=== PATIENT | female | born 1960 | race Two or more races ===

== ENCOUNTER 2016-09-28 20:18 | Inpatient (IN) ==
[2016-09-28] MEDS ORDERED: ONDANSETRON 4 MG/2 ML VIAL IV STA (20:45)
[2016-09-28] MEDS ORDERED: SODIUM CHLORIDE 0.9% 1,000 ML IV STA (20:45)
--- NOTE | 2016-09-28 20:50 | Emergency Department Note ---
Sidra Petit Emily, am scribing for, and in the presence of, Jerel Rosenbaum MD 20: 46. Robi Petit Charles R, MD, personally performed the services described in this documentation, ascribed by Juana Valente in my presence, and it is both accurate and complete 049 . Arrival - Arrival Chief Complaint: Overdose Stated Complaint: overdose ED Nursing Triage Note: Patient to room via ems. Patient took a handful of advil and drank some wine trying to hurt herself. Patient has attempted to hurt herself in the pass. Patient does have a history of depression. Mode of Arrival: Stretcher Limitations: No Limitations Source: Patient, Significant other Time Seen by Provider: 09/28/16 20:26 - History of Present Illness HPI Narrative: Pt is a 56 y/o female who was brought to ED by EMS for further evaluation of OD with 30 5mg of Valium and Advil (liquid gels) earlier tonight. Pt reports drinking 6 oz of wine. She has slow motions and reactions but alert. Spouse notes pt suffers from depression. Pt states "I am very sad." Onset (ago): hour(s) Consistency: constant Severity: moderate Severity scale (1-10): 5 Quality: other (OD) Date of Last Menstrual Period: hyst Allergies/Adverse Reactions: Allergies Allergy/AdvReac Type Severity Reaction Status Date / Time No Known Allergies Allergy Unverified 09/28/16 20:22 Review of System - Review of System 12 point system: reviewed and no additional remarkable complaints except as stated - Review of System Constitutional: Absent: fever Respiratory: Absent: respiratory distress Cardiovascular: Absent: chest pain Gastrointestinal: Absent: abdominal pain Musculoskeletal: Absent: arm pain, back pain, leg pain, neck pain Skin: Absent: rash Neurological: Absent: headache Psychiatric: Present: depression, suicidal thoughts. Absent: anxiety, homicidal thoughts Medical,Surgical,& Family Hx - Medical History Psychological: History of: Depression - Surgical History Surgical History: noncontributory - Family History Family History: noncontributory - Social History Smoking Status: Never smoker Frequency of Alcohol Use: Occasionally Type of Drug Use: None Marital Status: Lives With:: Spouse Functional capacity: independent ambulation Exam Vital Signs: Vital Signs Temperature 97.6 F 09/28/16 20:18 Pulse Rate 77 09/28/16 20:18 Respiratory Rate 16 09/28/16 21:48 Blood Pressure 98/70 09/28/16 20:18 O2 Sat by Pulse Oximetry 95 09/28/16 20:18 - General General appearance: alert, in no apparent distress, appears intoxicated - Head Head exam: Present: atraumatic, normocephalic - Eye Eye exam: Present: PERRL, EOMI, nystagmus (vertical and horizontal) - ENT ENT exam: Present: mucous membranes moist. Absent: mucous membranes dry - Neck Neck exam: Present: full ROM. Absent: tenderness - Chest Chest inspection: Present: symmetric chest wall rise. Absent: tenderness - Respiratory Respiratory exam: Present: normal lung sounds bilaterally, other (patent airway) . Absent: accessory muscle use, respiratory distress, wheezes - Cardiovascular Cardiovascular exam: Present: regular rate, normal rhythm, normal heart sounds - Abdominal Exam Abdominal exam: Present: soft. Absent: distention, tenderness - Neurological Exam Neurological exam: Present: alert, oriented X3, CN II-XII intact, other (heavy movements in arms with slow, laxity motions). Absent: motor sensory deficit - Skin Skin exam: Present: warm, dry, intact, normal color Course - Reevaluation(s) Reevaluation #1: Patient reevaluated she is still intoxicated on what appears to be a benzodiazepine overdose. Patient is arousable alert slurred speech patent airway oxygen saturation 100% room air she is arousable with deep sternal rub and will converse and answer appropriate questions Time: 21:59 - Consultations Consultation #1: Hospitalist will admit patient Time: 21:59 Results - Labs CBC & BMP: 09/28/16 21:00 Lab Results: I have reviewed the patients labs Labs: Laboratory Tests 09/28/16 21:00 MCV 84.5 L Baso % (Auto) 0.9 H Critical Care Time Critical Care Time: Yes Total Critical Care Time: 75 Disposition Clinical Impression: Drug overdose, Suicide attempt by multiple drug overdose, Major depression Case discussed with: patient, patient's family Disposition: Still a Patient Condition: Critical Time of Disposition: 21:59
[2016-09-28] MEDS ORDERED: ONDANSETRON 4 MG/2 ML VIAL ONE (20:58)
[2016-09-28 21:13] LABS: Basophils # 0.1 10*3/uL (0.0-0.2); Basophils % 0.9 % (0.0-0.8); Eosinophils # 0.1 10*3/uL (0.0-0.87); Eosinophils % 2.4 % (0.00-10.9); Hematocrit 38.3 VOL% (35.7-47.0); Hemoglobin 13.1 GM/DL (12.0-16.0); Immature Granulocytes % 0.2 %; Immature Granulocytes Absolute 0.01 #; Lymphocytes % 35.9 % (21.3-54.2); Mean Corpuscular HGB Conc 34.2 GM/DL (32-36); Mean Corpuscular Hemoglobin 29 PG (27-34); Mean Corpuscular Volume 84.5 FL (87-102); Mean Platelet Volume 10.3 FL (9.6-12.0); Monocytes # 0.3 10*3/uL (0.11-0.8); Monocytes % 5.9 % (1.7-12.7); Neutrophils % 54.7 % (38.7-73.9); Platelet Count 305 T/CUMM (130-400); Red Blood Count 4.53 MC/CUMM (3.8-5.5); Red Cell Distribution Width 13.5 % (9.3-17.3); White Blood Count 5.4 T/CUMM (4-12)
[2016-09-28 21:24] LABS: INR 1.1; PT Patient Result 11.8 SECS
[2016-09-28 21:30] LABS: Magnesium 2.2 MG/DL (1.8-2.4)
--- NOTE | 2016-09-28 21:33 | EKG Report ---
Stationary ECG Study [facility] ER Test Date: 09/28/2016 9:32:59 PM Pat Name: DIMA JOHNSON Department: Room: 129 Gender: F Fork Operator: MEGAN : 1960 Requested by: Jerel Fuentes Order Number: [id number] Reading MD: SHARON GALLO Intervals [place] Rate: 65 P: 62 CT: 170 QRS: 21 QRSD: 75 T: 52 QT: 390 QTc: 402 Interpretive Statements SINUS RHYTHM At 65 bpm LOW QRS VOLTAGE IN PRECORDIAL LEADS Electronically Signed On 10-03-16 15:45:01 CDT by SHARON GALLO [email or web address]
--- NOTE | 2016-09-28 22:04 | XRay Report ---
Referring Physician: Jerel Rosenbaum Exam: XR chest 1V portable Date: September 28, 2016 at 9:00 PM Reason: Overdose Comparison: None Findings: The cardiac silhouette is mildly enlarged. The interstitial markings are slightly prominent bilaterally, suggesting minimal pulmonary edema. No pneumothorax or pleural effusion is identified. No acute osseous process is seen. Impression: 1. Cardiomegaly. 2. Probable minimal pulmonary edema. PROCEDURE INTERPRETED AT [facility] DEPARTMENT OF RADIOLOGY Final Report Signed by: Dr. Lamonte Lynch
[2016-09-28 22:08] LABS: ABG Base Excess 2.1 MMOL/L (-2.5-2.5); ABG HCO3 26.3 MMOL/L (20-26); ABG Oxygen Saturation 99.1 % (95-100); ABG PCO2 47.8 MM HG (35-48); ABG PH 7.375 (7.35-7.45); ABG TCO2 24.8 MMOL/L (23-27)
[2016-09-28 22:12] LABS: Acetaminophen < 2.0 UG/ML (10-30); Salicylate < 2.8 MG/DL (2.8-20)
[2016-09-28] MEDS ORDERED: ONDANSETRON 4 MG/2 ML VIAL IV PRN (22:18)
[2016-09-28] MEDS ORDERED: ALBUTEROL 2.5 MG/3 ML NEB RESP TX PRN (22:18)
--- NOTE | 2016-09-28 22:24 | Hospitalist History & Physical ---
Assessment and Plan (1) Drug overdose Status: Acute Current Visit: Yes (2) Suicide attempt by multiple drug overdose Status: Acute Current Visit: Yes (3) Major depression Status: Acute Assessment and plan: We will admit the patient to our service. She will will be observed in the ICU. She will be on suicide precautions. Get psychiatric social worker involved with her care tomorrow. Patient needs to see [facility]. Current Visit: Yes History of Present Illness Chief complaint: Overdose History of present illness: Ms. Luna is a 56 year old female with past medical history of depression presents to our hospital tonight after taking a handful of Advil Valium and alcohol. Apparently patient was trying to hurt herself. Patient is sedated from her overdose and her is not here to discuss her case. According to the ER she drank 6 ounces of wine. She will wake up upon voice but at this time is not able to answer questions. Her airway is intact and there is no signs that she is too sedated to maintain her airway I was consulted to admit her Allergies Allergy/AdvReac Type Severity Reaction Status Date / Time No Known Allergies Allergy Unverified 09/28/16 20:22 Medical,Surgical,& Family Hx - Medical History Psychological: History of: Depression - Surgical History Reproductive Surgeries: Surgical HX of;: Hysterectomy - Family History Family History: noncontributory (none) - Social History Smoking Status: Never smoker Frequency of Alcohol Use: Occasionally Type of Drug Use: None ROS unobtainable: due to delirium Exam - Constitutional General appearance: normal weight - Head Head exam: Present: normal inspection - Eye Pupils: Present: DRE (Sluggish) - ENT ENT exam: Present: normal exam - Neck Neck exam: Present: normal inspection - Respiratory Respiratory exam: Present: clear to auscultation bilaterally - Cardiovascular Cardiovascular exam: Present: regular rate and rhythm - GI/Abdominal GI/Abdominal exam: Present: normal bowel sounds - Extremities Exam Extremities exam: Present: normal inspection - Back Exam Back exam: Present: normal inspection - Neurological Exam Neurological exam: Present: altered - Psychiatric Psychiatric exam: Present: other (Unable to assess) - Skin Skin exam: Present: normal color Results - Labs CBC & BMP: 09/28/16 21:00
[2016-09-28 22:39] LABS: Bilirubin,Total 0.5 MG/DL (0.2-1.0); Calcium 8.9 MG/DL (8.5-10.1); Osmolality,Calculated 279.1 MOS/KG (273-304); Potassium 3.8 MMOL/L (3.5-5.1)
[2016-09-28 22:53] LABS: Apearance,Urine CLEAR (Clear); Bilirubin,Urine Negative (Negative); Blood, Urine Negative (Negative); Glucose,Urine (UA) Negative (Negative); Ketones,Urine Negative (Negative); Mucus,Urine Occasional /LPF (Occasional); Nitrite,Urine Negative (Negative); Protein,Urine Negative; RBC,Urine 1 /HPF (0-4); Renal Epithelial Cells,Urine Occasional /HPF (<1); Urine Color Yellow (Yellow); Urine Specific Gravity 1.006 (1.001-1.035); Urine Urobilinogen < 2.0 EU/DL (0.2-1.0); WBC,Urine 2 /HPF (0-6)
[2016-09-28] MEDS: SODIUM CHLORIDE 0.9% 1,000 ML IV SCH (23:14)
[2016-09-28] MEDS: PANTOPRAZOLE 40 MG VIAL IV SCH (23:42)
[2016-09-29] MEDS ORDERED: SODIUM CHLORIDE 0.9% 500 ML IV ONE (00:24)
[2016-09-29 05:30] LABS: Basophils # 0.1 10*3/uL (0.0-0.2); Basophils % 0.8 % (0.0-0.8); Eosinophils # 0.2 10*3/uL (0.0-0.87); Eosinophils % 2.5 % (0.00-10.9); Hematocrit 37.1 VOL% (35.7-47.0); Hemoglobin 12.1 GM/DL (12.0-16.0); Immature Granulocytes % 0.3 %; Immature Granulocytes Absolute 0.02 #; Lymphocytes # 2.1 10*3/uL (1.4-4.0); Lymphocytes % 27.1 % (21.3-54.2); Mean Corpuscular HGB Conc 32.6 GM/DL (32-36); Mean Corpuscular Hemoglobin 28 PG (27-34); Mean Corpuscular Volume 86.5 FL (87-102); Mean Platelet Volume 10.6 FL (9.6-12.0); Monocytes # 0.5 10*3/uL (0.11-0.8); Monocytes % 5.9 % (1.7-12.7); Neutrophils % 63.4 % (38.7-73.9); Platelet Count 276 T/CUMM (130-400); Red Blood Count 4.29 MC/CUMM (3.8-5.5); White Blood Count 7.9 T/CUMM (4-12)
[2016-09-29 06:11] LABS: Albumin 3.2 G/DL (3.4-5.0); Bilirubin,Total 0.7 MG/DL (0.2-1.0); Calcium 8.3 MG/DL (8.5-10.1); Osmolality,Calculated 284.7 MOS/KG (273-304); Potassium 4.2 MMOL/L (3.5-5.1); Total Protein 5.7 G/DL (6.4-8.3)
[2016-09-29] MEDS: SODIUM CHLORIDE 0.9% 1,000 ML IV SCH ×3 (08:35→17:50)
[2016-09-29] MEDS: ENOXAPARIN 40 MG/0.4 ML SYRINGE SUBCUT SCH (08:35)
--- NOTE | 2016-09-29 13:27 | Hospitalist Progress Note ---
Assessment and Plan (1) Suicide attempt by multiple drug overdose Status: Acute Assessment and plan: Dixie to evaluate when more alert and awake. With place her on a psychiatric hold for 72 hours if patient attempts to leave Current Visit: Yes (2) Major depression Status: Acute Assessment and plan: Hold off on starting any medications at this time. Current Visit: Yes Hospitalist: Subjective Interval history: Patient still very sleepy. She looks stable. Blood pressure is stable. We will move her up to the floor on a monitor. Exam - Constitutional Vitals: Period Temp Pulse Resp BP Sys/Hdz Pulse Ox Last 24 Hr 97.7 F-100.3 F 60-97 - 69-117/37-74 92-100 Exam: Heart Rate-[RRR] Lungs-[CTAB] GI-[+bs soft, NT] Ext-[no edema] Neuro more lethargic from drugs unable to cooperate with neuro exam psych [depressed mood and affect] General [no acute distress] Results - Labs CBC & BMP: 09/29/16 05:23 09/29/16 05:23 Lab Results: I have reviewed the past 24 hour labs
[2016-09-29] MEDS: PANTOPRAZOLE 40 MG VIAL IV SCH (20:41)
[2016-09-30] MEDS: SODIUM CHLORIDE 0.9% 1,000 ML IV SCH (04:58)
--- NOTE | 2016-09-30 09:11 | Hospitalist Progress Note ---
Hospitalist: Subjective Interval history: No new complaints. No significant overnight events. Exam - Constitutional Vitals: Period Temp Pulse Resp BP Sys/Hdz Pulse Ox Last 24 Hr 96 F-100.3 F 61-87 12-20 103-120/47-78 93-100 Exam: General exam: Patient is awake alert and oriented 4 lying in hospital bed comfortable in no acute distress HEENT exam reveals pupils are equal and reactive to light extraocular muscles are intact sclerae clear conjunctiva pink nares are patent no discharge or epistaxis noted oropharynx is clear no oral lesions or thrush. Neck is supple no lymphadenopathy or thyromegaly appreciated no JVD. Cardiovascular exam reveals regular rate and rhythm normal S1-S2 no obvious murmurs rubs or gallops Lungs are clear to auscultation bilaterally with good aeration nonlabored breathing noted Abdomen is soft nontender nondistended positive bowel sounds no organomegaly or mass appreciated Extremity exam she is warm and well-perfused no clubbing cyanosis or edema Neuro exam revealed cranial nerves II through XII are intact she had 5 out of 5 strength of the upper and lower extremities bilaterally sensory exam was grossly intact. Gait was not assessed. She had a normal finger nose exam. Babinski was absent. No clonus noted Results - Labs CBC & BMP: 09/29/16 05:23 09/29/16 05:23 - Impressions (1) Suicide attempt by multiple drug overdose Status: Acute Assessment and plan: Patient has declined Oste[facility] evaluation . We had a letter from her primary psychiatrist who reports he will assume responsibility for her and will follow up with her upon discharge. She currently denies any suicidal or homicidal ideation. is in agreement with this plan. Current Visit: Yes (2) Major depression Status: Acute Assessment and plan: Resume home medication. Current Visit: Yes Okay to DC home with her . Patient to sign suicidal contract. See orders
[2016-09-30] MEDS: ENOXAPARIN 40 MG/0.4 ML SYRINGE SUBCUT SCH (09:42)
[2016-09-30 10:39] LABS: Free T4 (Free Thyroxine) 0.96 NG/DL (0.76-1.46); Thyroid Stimulating Hormone 2.4 uIU/ml (0.358-3.74)
--- NOTE | 2016-09-30 11:04 | Discharge Summary ---
<Cooper Puente - Last Filed: 09/30/16 12:24> Hospital Course - Hospital Course Hospital Course: Ms. uLna is a 56 yr old female pt with a history of depression that presented to the ED after a suicide attempt. Pt. took 30 5mg of Valium and an undisclosed amount of Advil in addition to drinking 6 oz of wine. Pt. was sedated and admitted to the ICU for further evaluation and treatment. The patient was monitored closely and began to wake up. Pt.'s condition improved and she was transferred to the floor on 09/29. Pt.'s vital signs are stable and she will be discharged home today with a referral to follow up with psychiatry. Medications will be held at this time. MD to follow. Specialty Discharge - Follow Up or Referrals Follow up with: , PCP [Other] - [address] joel [Other] - 3 Days Discharge Plan - Discharge Data Disposition: Disch To Home/Self Care - Discharge Medications Continue Paroxetine HCl [Paxil] 20 mg PO DAILY Multivitamin [Multivitamins] 1 each PO DAILY Discontinued Diazepam Tab [Valium Tab] 5 mg PO Q6H PRN PRN Reason: Anxiety - Follow Up or Referral - Forms/Instructions Exam - Constitutional Vitals: Period Temp Pulse Resp BP Sys/Hdz Pulse Ox Last 24 Hr 97.3 F-98.3 F 61-87 16-20 103-130/47-78 93-98 Discharge Results Labs on day of discharge: Labs from last 24 hours 09/30/16 09/30/16 09/30/16 09:42 09:42 09:42 Vitamin B12 687 25-OH Vitamin D Total 27.2 Free T4 TSH 3rd Generation Treponema pallidum IgG Nonreactive 09/30/16 09:42 Vitamin B12 25-OH Vitamin D Total Free T4 0.96 TSH 3rd Generation 2.400 Treponema pallidum IgG DS: Provider Date of admission: 09/28/16 21:57 Primary care physician: . No PCP Attending physician on admission: Jay Rodriguez MD Consults: 09/28/16 22:20 Consult to Case Mgmt/Social Srvs [CONS] Routine Reason for Case Mgmt/Social Srvs: Psychiatric Management Discharging clinician: Cooper Puente NP <Zainab Bender - Last Filed: 09/30/16 15:57> Hospital Course - Hospital Course Hospital Course: Patient denies any headache, changes in her vision, epistaxis, difficulty swallowing, chest pain, shortness of breath, palpitations, lightheadedness or dizziness, nausea, vomiting, abdominal pain, melena, bright red blood per rectum , hematuria, changes in her urine output, dysuria, or any focal neurological changes. No seizure activity reported. She is tolerating oral intake well. Patient admits to feeling guilty about taking the Valium as and when asked what she asked why she reports "I do not know". She admits to mild difficulty in concentrating and focusing on tasks. She denies any changes or trouble with sleeping, eating and denies any changes with her weight. She reports her energy level is "okay". She denies feeling that her mood is sad or that she feels as if she would hurt herself or anyone else. Patient has declined to speak with the psychiatry team at [facility]. We have received a letter from her psychiatrist, Dr. Sellers who reports that he will assume care for her and feels she does not require inpatient psychiatric treatment at this time. When she was medically stable she was discharged home for ongoing care. - Time spent with patient Time with patient DS: Greater than 30 minutes (33 minutes arranging this discharge) Discharge Plan - Discharge Data Condition at Discharge: Stable Discharge Diet: advance to your usual diet Activity: resume usual activities as tolerated Contact your physician if you experience:: fever over 101, Difficulty voiding, Redness or swelling, Nausea/Vomiting, Shortness of breath, Bleeding, pain uncontrolled by pain medications - Forms/Instructions Additional Discharge Instructions: Patient needs to sign a suicidal contract prior to discharge agreeing that if she feels suicidal that she will contact her MD prior to taking action. Exam - Constitutional Exam: See progress note from today's exam is unchanged
[2016-09-30 15:44] VITALS: BP 112/71
== END 2016-09-30 16:30 | disposition home or self-care (01) | DRG 918 ==
LOC: EDBD → EDUNIT# → N.ED 20:18 → SUATTDRO 21:57 → N.EDINP 21:57 → N.CC 22:23 → N.4E 09-29 13:08
PROVIDERS: ADMIT Internal Medicine; ATTEND Pediatrics

== ENCOUNTER 2016-10-19 12:24 | Inpatient (IN) ==
--- NOTE | 2016-10-19 13:00 | XRay Report ---
XR chest 1V portable Indication: Overdose Comparison: Chest x-ray 09/28/2016 Technique: Portable AP chest was performed. Findings: The heart size appears within normal limits. Pulmonary vasculature demonstrates no specific abnormality. Hilar structures demonstrate fairly symmetric appearance. The lungs appear clear. Bones and soft tissues demonstrate no evidence of acute pathology. Impression: 1. No evidence of acute pathology. 10/19/2016 12:56 PM PROCEDURE INTERPRETED AT [facility] DEPARTMENT OF RADIOLOGY Final Report Signed by: Dr. Ming Banda
[2016-10-19 13:01] LABS: Apearance,Urine CLOUDY (Clear); Bacteria,Urine Occasional /HPF (Few); Barbiturates Screen,Urine Negative (Negative); Benzodiazepines Screen,Urine Positive (Negative); Bilirubin,Urine Negative (Negative); Blood, Urine Moderate mg/dL (Negative); Cannabinoid Screen,Urine Negative (Negative); Glucose,Urine (UA) Negative (Negative); Ketones,Urine Negative (Negative); Mucus,Urine Occasional /LPF (Occasional); Nitrite,Urine Negative (Negative); Opiate Screen,Urine Negative (Negative); Phencyclidine Screen,Urine Negative (Negative); Protein,Urine 30 MG/DL; RBC,Urine 72 /HPF (0-4); Squamous Epithelial Cell,Urine Occasional /HPF (0-10); Transitional Epi Cells,Urine Occasional /HPF (<1); Urine Color Yellow (Yellow); Urine Specific Gravity 1.015 (1.001-1.035); Urine Urobilinogen < 2.0 EU/DL (0.2-1.0); WBC,Urine 11 /HPF (0-6)
[2016-10-19 13:11] LABS: ABG Base Excess -0.8 MMOL/L (-2.5-2.5); ABG HCO3 25.8 MMOL/L (20-26); ABG PCO2 50.5 MM HG (35-48); ABG PH 7.327 (7.35-7.45); ABG PO2 192.5 MM HG (80-95); ABG TCO2 27.4 MMOL/L (23-27)
--- NOTE | 2016-10-19 13:11 | EKG Report ---
Stationary ECG Study [facility] ER Test Date: 10/19/2016 1:09:16 PM Pat Name: DIMA JOHNSON Department: Room: Gender: F Psychologist: : 1960 Requested by: Emmanuel Recinos Order Number: [id number] Reading MD: MARCUS DONALDSON Intervals [place] Rate: 68 P: 37 [place]: 212 QRS: -31 QRSD: 99 T: 50 QT: 437 QTc: 455 Interpretive Statements SINUS RHYTHM WITH PROLONGED [place] INTERVAL LEFT AXIS DEVIATION PATTERN CONSISTENT WITH PULMONARY DISEASE Electronically Signed On 10-19-16 20:53:55 CDT by MARCUS DONALDSON [id number]
[2016-10-19 13:40] LABS: Basophils % 0.6 % (0.0-0.8); Eosinophils # 0.1 10*3/uL (0.0-0.87); Eosinophils % 1.4 % (0.00-10.9); Hematocrit 39.4 VOL% (35.7-47.0); Hemoglobin 13.7 GM/DL (12.0-16.0); Immature Granulocytes % 0.2 %; Immature Granulocytes Absolute 0.01 #; Lymphocytes # 1.7 10*3/uL (1.4-4.0); Lymphocytes % 34.1 % (21.3-54.2); Mean Corpuscular HGB Conc 34.8 GM/DL (32-36); Mean Corpuscular Hemoglobin 29 PG (27-34); Mean Corpuscular Volume 84.2 FL (87-102); Mean Platelet Volume 11.2 FL (9.6-12.0); Monocytes # 0.3 10*3/uL (0.11-0.8); Monocytes % 4.9 % (1.7-12.7); Neutrophils % 58.8 % (38.7-73.9); Platelet Count 371 T/CUMM (130-400); Red Blood Count 4.68 MC/CUMM (3.8-5.5); Red Cell Distribution Width 13.1 % (9.3-17.3); White Blood Count 5.1 T/CUMM (4-12)
[2016-10-19 13:45] LABS: INR 1.1; PT Patient Result 11.3 SECS
[2016-10-19 13:55] LABS: Alanine Aminotransferase 39 U/L (13-56); Albumin 3.8 G/DL (3.4-5.0); Alkaline Phosphatase 72 U/L (45-117); Aspartate Amino Transferase 31 U/L (0-37); Blood Urea Nitrogen 11 MG/DL (7-18); Glucose 101 MG/DL (74-106); Osmolality,Calculated 275.5 MOS/KG (273-304); Potassium 3.5 MMOL/L (3.5-5.1); Sodium 139 MMOL/L (136-145); Total Protein 7.5 G/DL (6.4-8.3)
--- NOTE | 2016-10-19 13:59 | Emergency Department Note ---
Alla Petit Mantricia, am scribing for, and in the presence of, Emmanuel Licea MD 12:58. Anuja Petit James D, MD, personally performed the services described in this documentation, ascribed by Elmo Gold in my presence, and it is both accurate and complete [id number] . Arrival - Arrival Chief Complaint: Overdose Stated Complaint: unresponsive ED Nursing Triage Note: Brought in per spouse with c/o overdose at approx 1150am. Spouse reports patient took approx 23 Xanax 1mg and 20 Prozac 40mg. Admits to attempting to harm self. History of depression, was hospitalized on for overdose. Awake, but drowsy, oriented x 3. Mode of Arrival: Carried Limitations: No Limitations Source: Patient Time Seen by Provider: 10/19/16 12:40 - History of Present Illness HPI Narrative: Pt is a 56 y/o female carried to ED by family for evaluation of an overdose that happened about an hour ago. Daughter in law states that pt told her that she needed to use the restroom while they were at home. She then noticed that pt was in there for a while and she found pt on the floor LOC and empty pill bottles in the trash near her. She possibly took 23 Xanax, 20 Prozac, and some medications prescribed for her dog. Pt has a Hx of suicidal attempts and is currently seeing a psychiatrist from [place], [place]. Although she had not vocalized any suicidal thoughts to family, Spouse states that she has been apologizing lately for being a burden on her family. At time of exam, pt is awake but very drowsy. There are no other complaints stated by family or pt. Onset (ago): hour(s) Date of Last Menstrual Period: hyst Allergies/Adverse Reactions: Allergies Allergy/AdvReac Type Severity Reaction Status Date / Time No Known Allergies Allergy Verified 10/19/16 12:30 Home Medications: Home Medications Medication Instructions Recorded Confirmed Type Multivitamin [Multivitamins] 1 each PO DAILY 09/28/16 10/19/16 History ALPRAZolam [Xanax] 1 mg PO DAILY 10/19/16 10/19/16 History Fluoxetine HCl [Prozac] 40 mg PO DAILY 10/19/16 10/19/16 History Review of System - Review of System 12 point system: reviewed and no additional remarkable complaints except as stated - Review of System Constitutional: Present: other (overdose). Absent: chills, diaphoresis, fever Eyes: Absent: discharge, pain Head/Ears/Nose/Throat: Absent: earache, epistaxis, nasal drainage Respiratory: Absent: cough, respiratory distress, wheezing Cardiovascular: Absent: chest pain, dyspnea on exertion Gastrointestinal: Absent: abdominal pain, nausea, vomiting, diarrhea Genitourinary female: Absent: abnormal menses, dysuria Musculoskeletal: Absent: arm pain, back pain, leg pain, neck pain Skin: Absent: rash, lesions Neurological: Absent: headache, weakness Psychiatric: Present: depression, suicidal thoughts Medical,Surgical,& Family Hx - Medical History Psychological: History of: Depression, Previous Suicide Attempt (09/28/16) - Surgical History Reproductive Surgeries: Surgical HX of;: Hysterectomy - Social History Smoking Status: Never smoker Frequency of Alcohol Use: None Type of Drug Use: None Exam Vital Signs: Vital Signs Temperature 97.4 F L 10/19/16 12:24 Pulse Rate 63 10/19/16 13:33 Respiratory Rate 15 10/19/16 13:33 Blood Pressure 104/71 10/19/16 13:33 O2 Sat by Pulse Oximetry 100 10/19/16 13:33 - General General appearance: alert (but drowsy), in distress - Head Head exam: Present: atraumatic, normocephalic, normal inspection - Eye Eye exam: Present: normal appearance, PERRL, EOMI - ENT ENT exam: Present: normal exam, normal oropharynx, mucous membranes moist, TM's normal bilaterally, normal external ear exam - Neck Neck exam: Present: normal inspection, full ROM, trachea midline. Absent: tenderness - Chest Chest inspection: Present: normal inspection, symmetric chest wall rise. Absent : tenderness - Respiratory Respiratory exam: Present: normal lung sounds bilaterally - Cardiovascular Cardiovascular exam: Present: regular rate, normal rhythm, normal heart sounds - Abdominal Exam Abdominal exam: Present: soft, normal bowel sounds. Absent: distention, tenderness, guarding, rebound - Extremities Exam Extremities exam: Present: normal inspection, full ROM, normal capillary refill. Absent: tenderness, pedal edema - Back Exam Back exam: Present: normal inspection, full ROM. Absent: tenderness - Neurological Exam Neurological exam: Present: oriented X3 - Psychiatric Psychiatric exam: Present: depressed - Skin Skin exam: Present: warm, dry, intact, normal color Course - Consultations Consultation #1: Discussed with hospitalist. Patient will be admitted to their service. Time: 14:03 Results - Labs CBC & BMP: 10/19/16 13:41 10/19/16 12:30 Lab Results: I have reviewed the patients labs Labs: Laboratory Tests 10/19/16 10/19/16 10/19/16 12:30 12:30 12:30 WBC Hgb Hct Plt Count INR ABG pH ABG pCO2 ABG pO2 ABG HCO3 ABG Total CO2 ABG O2 Saturation Urine RBC 72 Urine WBC 11 Urine Opiates Screen Negative Acetaminophen < 2.0 L Ur Barbiturates Screen Negative Ur Phencyclidine Scrn Negative U Amphetamine/Methamph Negative U Benzodiazepines Scrn Positive H U Cocaine Metab Screen Negative U Cannabinoids Screen Negative 10/19/16 10/19/16 10/19/16 12:41 13:08 13:41 WBC 5.1 Hgb 13.7 Hct 39.4 Plt Count 371 INR 1.1 ABG pH 7.327 L ABG pCO2 50.5 H ABG pO2 192.5 H ABG HCO3 25.8 ABG Total CO2 27.4 H ABG O2 Saturation 99.0 Urine RBC Urine WBC Urine Opiates Screen Acetaminophen Ur Barbiturates Screen Ur Phencyclidine Scrn U Amphetamine/Methamph U Benzodiazepines Scrn U Cocaine Metab Screen U Cannabinoids Screen - EKG EKG results: interpreted by ERMD - Impressions EKG: Normal sinus rhythm with rate of 68, first-degree AV block, left axis deviation. - Diagnostic Findings Procedure: Chest x-ray: image reviewed by me (No infiltrate, no pleural effusions, no cardiomegaly.) Disposition Clinical Impression: Polysubstance overdose, Suicide gesture Case discussed with: patient Disposition: Still a Patient Condition: Stable Time of Disposition: 13:49
[2016-10-19] MEDS ORDERED: ONDANSETRON 4 MG/2 ML VIAL IV PRN (14:08)
--- NOTE | 2016-10-19 14:40 | Hospitalist History & Physical ---
Assessment and Plan (1) Suicide gesture Status: Acute Assessment and plan: This is chronic in nature per report. The patient is currently followed by her personal psychiatrist in [place],. On the previous admission, both the patient and psychiatrist declined psychiatric evaluation and inpatient placement. We will consult case management for [facility] evaluation. Current Visit: Yes (2) Drug overdose Status: Acute Assessment and plan: This is the second intentional overdose in less than 2 weeks. On the previous admission the patient overdosed on benzodiazepines which she took again with this admission. We will monitor for airway compromise and placed in one-to-one observation in the critical care unit for safety. Current Visit: No (3) Major depression Status: Acute Assessment and plan: We will consult alliance to evaluate. Current Visit: No History of Present Illness Chief complaint: Intentional overdose History of present illness: This is a very poor and unfortunate 56-year-old female that presented to the ED at [facility] today for evaluation of an intentional overdose. The patient has a very complex medical history significant for depression, anxiety, and multiple suicide attempts in the past. The patient has a surgical history of hysterectomy. Her is at bedside he served as historian. Her reported that the attempt occurred 1 hour prior to presentation. The patient was recently admitted on earlier this month on September 28 for an episode similar in nature. In the previous episode the patient had ingested 35 mg Valium tablets and undisclosed amount of ibuprofen and and consumed some alcohol. At that time she was admitted to the ICU setting here at [facility] and closely monitor. She was subsequently discharged on September 30, 2016 to follow-up with her psychiatristDuring the previous admission the patient declined psychiatric evaluation at [facility] and we received correspondence from her personal psychiatrist who assumed her care and felt that she did not need inpatient psychiatric treatment at that time. Her reports that her condition had relatively been stable. He reports that she was starting to experience some issues with anxiety, however these episodes were controlled with use of her Xanax. Her reports that he did not feel safe leaving her alone and that his family members were taking turns sitting with her to ensure her safety. On today, her reports that he left to run in a errand and that she was alone with her daughter-in- law. He reports that he usually removes her medications from her site, however on today he forgot. He reports that the patient was attempting to convince her [id number] that she could stay alone and that she felt very bad that she had to alter her lifestyle in order to watch her. The [id number] left the patient alone in the room momentarily, she stopped the medications, and ingested the medications very quickly. Upon the return of her [id number], the patient informed her that she had taken the medications. At that time the [id number] called her and she was brought to the emergency room for further evaluation. The patient presented lethargic however arousable. Labs were obtained which were essentially unremarkable. Arterial blood gases were performed which reported a pH at 7.327, PCO2 at 50.5, and bicarb at 27.4. Urine drug screen was performed which was positive for benzodiazepines. Serum acetaminophen levels were noted at less than 2.0 and serum alcohol level was less than 15. After a brief discussion with both Dr. Licea and Dr. Schrader the patient will be admitted to the hospitalist services to the critical care unit for one-to-one observation. Home Medications Medication Instructions Recorded Confirmed Type Multivitamin [Multivitamins] 1 each PO DAILY 09/28/16 10/19/16 History ALPRAZolam [Xanax] 1 mg PO DAILY 10/19/16 10/19/16 History Fluoxetine HCl [Prozac] 40 mg PO DAILY 10/19/16 10/19/16 History Allergies Allergy/AdvReac Type Severity Reaction Status Date / Time No Known Allergies Allergy Verified 10/19/16 12:30 Medical,Surgical,& Family Hx - Medical History Psychological: History of: Depression, Previous Suicide Attempt (09/28/16) - Surgical History Reproductive Surgeries: Surgical HX of;: Hysterectomy - Social History Smoking Status: Never smoker Frequency of Alcohol Use: None Type of Drug Use: None ROS unobtainable: due to mental status Exam - Constitutional Vitals: Period Temp Pulse Resp BP Sys/Hdz Pulse Ox Last 24 Hr 97.4 F-97.4 F 63-74 12-18 89-104/61-71 98-100 General appearance: normal weight, no acute distress - Head Head exam: Present: normal inspection, normocephalic, atraumatic - Eye Eye exam: Present: EOMI. Absent: conjunctival injection, nystagmus Pupils: Present: DRE, normal accommodation, constricted - ENT ENT exam: Present: normal exam, normal external ear exam, normal oropharynx - Neck Neck exam: Present: normal inspection - Respiratory Respiratory exam: Present: clear to auscultation bilaterally. Absent: rales, rhonchi, stridor, wheezes - Cardiovascular Cardiovascular exam: Present: bradycardia, regular rate and rhythm. Absent: carotid bruit, diastolic murmur, gallop, JVD, rubs, systolic murmur - GI/Abdominal GI/Abdominal exam: Present: normal bowel sounds, soft - Extremities Exam Extremities exam: Present: normal inspection, normal capillary refill, full ROM. Absent: calf tenderness, edema - Back Exam Back exam: Present: normal inspection - Neurological Exam Neurological exam: Present: other (lethargic; but arouseable) - Psychiatric Psychiatric exam: Present: flat affect - Skin Skin exam: Present: normal color, warm, dry Results - Labs CBC & BMP: 10/19/16 13:41 10/19/16 12:30 Lab Results: I have reviewed the past 24 hour labs
[2016-10-19] MEDS ORDERED: SODIUM CHLORIDE 0.9% 1,000 ML IV STA (15:39)
[2016-10-19] MEDS: ENOXAPARIN 40 MG/0.4 ML SYRINGE SUBCUT SCH (16:56)
[2016-10-19] MEDS: SODIUM CHLORIDE 0.9% 1,000 ML IV SCH (17:31)
[2016-10-20] MEDS: SODIUM CHLORIDE 0.9% 1,000 ML IV SCH ×2 (02:25→09:08)
[2016-10-20 05:32] LABS: Basophils % 0.4 % (0.0-0.8); Eosinophils # 0.1 10*3/uL (0.0-0.87); Eosinophils % 0.9 % (0.00-10.9); Hematocrit 39.5 VOL% (35.7-47.0); Hemoglobin 13.7 GM/DL (12.0-16.0); Immature Granulocytes % 0.1 %; Immature Granulocytes Absolute 0.01 #; Lymphocytes # 0.9 10*3/uL (1.4-4.0); Lymphocytes % 12.4 % (21.3-54.2); Mean Corpuscular HGB Conc 34.7 GM/DL (32-36); Mean Corpuscular Hemoglobin 29 PG (27-34); Mean Corpuscular Volume 82.5 FL (87-102); Mean Platelet Volume 10.2 FL (9.6-12.0); Monocytes # 0.3 10*3/uL (0.11-0.8); Monocytes % 4.4 % (1.7-12.7); Neutrophils # 6.2 10*3/uL (1.4-7.4); Neutrophils % 81.8 % (38.7-73.9); Platelet Count 379 T/CUMM (130-400); Red Blood Count 4.79 MC/CUMM (3.8-5.5); Red Cell Distribution Width 13.2 % (9.3-17.3); White Blood Count 7.6 T/CUMM (4-12)
[2016-10-20 05:56] LABS: Albumin 3.7 G/DL (3.4-5.0); Bilirubin,Total 0.9 MG/DL (0.2-1.0); Calcium 8.1 MG/DL (8.5-10.1); Magnesium 2.1 MG/DL (1.8-2.4); Potassium 2.9 MMOL/L (3.5-5.1); Total Protein 6.8 G/DL (6.4-8.3)
--- NOTE | 2016-10-20 11:47 | Hospitalist Progress Note ---
Assessment and Plan (1) Acute metabolic encephalopathy Status: Acute Assessment and plan: The patient's encephalopathy is slowly resolving. We will ask alliance to evaluate her today. We will replete potassium and restart her regular diet. We will recheck electrolytes in the morning. Current Visit: Yes Hospitalist: Subjective Interval history: The patient is awake and drowsy. The patient expresses some remorse concerning her suicide attempt. The patient does not express suicidal or homicidal ideation at this time. The patient remains relatively hypotensive due to the medications which she took yesterday. The patient is not complaining of shortness of breath or palpitations or abdominal pain. Exam - Constitutional Vitals: Period Temp Pulse Resp BP Sys/Hdz Pulse Ox Last 24 Hr 97.4 F-98.5 F 58-87 11-25 72-104/46-71 95-100 Exam: Constitutional System: No distress. No tremulousness. Head: Normocephalic, atraumatic. Ears, Nose and Throat System: No evidence of Otitis or Mastoiditis. No epistaxis or discharge Eyes System: Pupils equal, round, and reactive. Extraocular muscles intact. Neck: Supple, without adenopathy, No jugular venous distention. No thyromegaly , neck mass, or prior surgery apparent. Respiratory System: Chest clear to auscultation. Cardiovascular System: Heart with regular rate and rhythm. No murmur. GI System: Abdomen soft, nontender. Normo active bowel sounds present. Musculoskeletal System: limbs with no pedal edema. Full distal pulses. Results - Labs CBC & BMP: 10/20/16 05:24 10/20/16 05:24 Lab Results: I have reviewed the past 24 hour labs
[2016-10-20] MEDS ORDERED: POTASSIUM CHLORIDE 20 MEQ TABLET PO SCH (12:00)
--- NOTE | 2016-10-20 13:04 | Discharge Summary ---
Hospital Course - Hospital Course Hospital Course: The patient was admitted to [facility] area after evaluation in the emergency room. The patient was found to have metabolic encephalopathy due to overtaking Paxil and Xanax. The patient was observed in the critical care area overnight and found to be alert the following day. She has been evaluated by [facility] and will transfer there for continued inpatient treatment. The patient had no metabolic complications of her encephalopathy. At the time of discharge the chest is clear and abdomen soft. Preparation of discharge documents and coordination with case loader operator required 32 minutes on the date of discharge - Time spent with patient Time with patient DS: Greater than 30 minutes Diagnosis - Discharge Diagnosis (1) Acute metabolic encephalopathy Status: Acute Discharge Plan - Discharge Data Disposition: Disch/Xfer to Psych Hos Condition at Discharge: Stable Discharge Diet: regular diet Activity: resume usual activities as tolerated - Discharge Medications Continue Fluoxetine HCl [Prozac] 40 mg PO DAILY ALPRAZolam [Xanax] 1 mg PO DAILY No Action Multivitamin [Multivitamins] 1 each PO DAILY - Follow Up or Referral - Forms/Instructions Exam - Constitutional Vitals: Period Temp Pulse Resp BP Sys/Hdz Pulse Ox Last 24 Hr 98.1 F-98.5 F 58-87 11-25 72-104/46-71 95-100 Discharge Results Procedures and tests throughout hospitalization: Pending Orders 10/19/16 Urine Culture Routine 10/19/16 15:45 MRSA Surveillence, Inf Control Routine 10/21/16 04:00 Basic Metabolic Panel w/Mg IN AM Comp Blood Count Auto Diff IN AM Labs on day of discharge: Labs from last 24 hours 10/20/16 10/20/16 10/19/16 05:24 05:24 13:41 WBC 7.6 D 5.1 RBC 4.79 4.68 Hgb 13.7 13.7 Hct 39.5 39.4 MCV 82.5 L 84.2 L MCH 29 29 MCHC 34.7 34.8 RDW 13.2 13.1 Plt Count 379 371 MPV 10.2 11.2 Neut % (Auto) 81.8 H 58.8 Lymph % (Auto) 12.4 L 34.1 Millard % (Auto) 4.4 4.9 Eos % (Auto) 0.9 1.4 Baso % (Auto) 0.4 0.6 Neut # (Auto) 6.2 3.0 Lymph # (Auto) 0.9 L 1.7 Millard # (Auto) 0.3 0.3 Eos # (Auto) 0.1 0.1 Baso # (Auto) 0.0 0.0 Immature Gran % 0.1 0.2 Nucleated RBC % 0.0 0.0 Immature Gran # 0.01 0.01 Nucleated RBCs # 0.00 0.00 INR PT Patient/Control Mix ABG pH ABG pCO2 ABG pO2 ABG HCO3 ABG Total CO2 ABG O2 Saturation ABG Base Excess Sodium 143 Potassium 2.9 L Chloride 106 Carbon Dioxide 25 Anion Gap 14.9 BUN 18 Creatinine 1.60 H GFR Calculation 31 BUN/Creatinine Ratio 11.00 Glucose 98 POC Glucose Calculated Osmolality 286.0 Calcium 8.1 L Magnesium 2.1 Total Bilirubin 0.90 AST 141 H ALT 146 H Alkaline Phosphatase 89 Total Protein 6.8 Albumin 3.7 Globulin 3.1 Albumin/Globulin Ratio 1.1 Urine Color Urine Appearance Urine pH Ur Specific [place] Urine Protein Urine Glucose (UA) Urine Ketones Urine Blood Urine Nitrate Urine Bilirubin Urine Urobilinogen Urine Leukocytes Urine RBC Urine WBC Urine WBC Clumps Ur Squamous Epith Cells Ur Transition Epith Cell Urine Bacteria Cellular Casts Urine Mucus Ur Culture Indicated? Urine Opiates Screen Acetaminophen Ur Barbiturates Screen Ur Phencyclidine Scrn U Amphetamine/Methamph U Benzodiazepines Scrn U Cocaine Metab Screen U Cannabinoids Screen Serum Alcohol 10/19/16 10/19/16 10/19/16 13:08 13:04 12:41 WBC RBC Hgb Hct MCV MCH MCHC RDW Plt Count MPV Neut % (Auto) Lymph % (Auto) [place] % (Auto) Eos % (Auto) Baso % (Auto) Neut # (Auto) Lymph # (Auto) Millard # (Auto) Eos # (Auto) Baso # (Auto) Immature Gran % Nucleated RBC % Immature Gran # Nucleated RBCs # INR 1.1 PT Patient/Control Mix 11.3 ABG pH 7.327 L ABG pCO2 50.5 H ABG pO2 192.5 H ABG HCO3 25.8 ABG Total CO2 27.4 H ABG O2 Saturation 99.0 ABG Base Excess -0.8 Sodium Potassium Chloride Carbon Dioxide Anion Gap BUN Creatinine GFR Calculation BUN/Creatinine Ratio Glucose POC Glucose 83 Calculated Osmolality Calcium Magnesium Total Bilirubin AST ALT Alkaline Phosphatase Total Protein Albumin Globulin Albumin/Globulin Ratio Urine Color Urine Appearance Urine pH Ur Specific [place] Urine Protein Urine Glucose (UA) Urine Ketones Urine Blood Urine Nitrate Urine Bilirubin Urine Urobilinogen Urine Leukocytes Urine RBC Urine WBC Urine WBC Clumps Ur Squamous Epith Cells Ur Transition Epith Cell Urine Bacteria Cellular Casts Urine Mucus Ur Culture Indicated? Urine Opiates Screen Acetaminophen Ur Barbiturates Screen Ur Phencyclidine Scrn U Amphetamine/Methamph U Benzodiazepines Scrn U Cocaine Metab Screen U Cannabinoids Screen Serum Alcohol 10/19/16 10/19/16 10/19/16 12:30 12:30 12:30 WBC RBC Hgb Hct MCV MCH MCHC RDW Plt Count MPV Neut % (Auto) Lymph % (Auto) [place] % (Auto) Eos % (Auto) Baso % (Auto) Neut # (Auto) Lymph # (Auto) Millard # (Auto) Eos # (Auto) Baso # (Auto) Immature Gran % Nucleated RBC % Immature Gran # Nucleated RBCs # INR PT Patient/Control Mix ABG pH ABG pCO2 ABG pO2 ABG HCO3 ABG Total CO2 ABG O2 Saturation ABG Base Excess Sodium 139 Potassium 3.5 Chloride 103 Carbon Dioxide 26 Anion Gap 13.5 BUN 11 Creatinine 0.90 GFR Calculation 62 BUN/Creatinine Ratio 12.00 Glucose 101 POC Glucose Calculated Osmolality 275.5 Calcium 9.0 Magnesium Total Bilirubin 0.40 AST 31 ALT 39 Alkaline Phosphatase 72 Total Protein 7.5 Albumin 3.8 Globulin 3.7 H Albumin/Globulin Ratio 1.0 L Urine Color Urine Appearance Urine pH Ur Specific [place] Urine Protein Urine Glucose (UA) Urine Ketones Urine Blood Urine Nitrate Urine Bilirubin Urine Urobilinogen Urine Leukocytes Urine RBC Urine WBC Urine WBC Clumps Ur Squamous Epith Cells Ur Transition Epith Cell Urine Bacteria Cellular Casts Urine Mucus Ur Culture Indicated? Urine Opiates Screen Negative Acetaminophen < 2.0 L Ur Barbiturates Screen Negative Ur Phencyclidine Scrn Negative U Amphetamine/Methamph Negative U Benzodiazepines Scrn Positive H U Cocaine Metab Screen Negative U Cannabinoids Screen Negative Serum Alcohol < 15 L 10/19/16 12:30 WBC RBC Hgb Hct MCV MCH MCHC RDW Plt Count MPV Neut % (Auto) Lymph % (Auto) [place] % (Auto) Eos % (Auto) Baso % (Auto) Neut # (Auto) Lymph # (Auto) Millard # (Auto) Eos # (Auto) Baso # (Auto) Immature Gran % Nucleated RBC % Immature Gran # Nucleated RBCs # INR PT Patient/Control Mix ABG pH ABG pCO2 ABG pO2 ABG HCO3 ABG Total CO2 ABG O2 Saturation ABG Base Excess Sodium Potassium Chloride Carbon Dioxide Anion Gap BUN Creatinine GFR Calculation BUN/Creatinine Ratio Glucose POC Glucose Calculated Osmolality Calcium Magnesium Total Bilirubin AST ALT Alkaline Phosphatase Total Protein Albumin Globulin Albumin/Globulin Ratio Urine Color Yellow Urine Appearance Cloudy Urine pH 5.0 Ur Specific [place] 1.015 Urine Protein 30 Urine Glucose (UA) Negative Urine Ketones Negative Urine Blood Moderate Urine Nitrate Negative Urine Bilirubin Negative Urine Urobilinogen < 2.0 H Urine Leukocytes Negative Urine RBC 72 Urine WBC 11 Urine WBC Clumps Occasional Ur Squamous Epith Cells Occasional Ur Transition Epith Cell Occasional Urine Bacteria Occasional Cellular Casts 7 Urine Mucus Occasional Ur Culture Indicated? Results to follow Urine Opiates Screen Acetaminophen Ur Barbiturates Screen Ur Phencyclidine Scrn U Amphetamine/Methamph U Benzodiazepines Scrn U Cocaine Metab Screen U Cannabinoids Screen Serum Alcohol Preliminary micro results at discharge 10/19/16 Unknown Urine Culture - Preliminary Urine,Clean Catch No Growth at 24 hours. DS: Provider Date of admission: 10/19/16 14:05 Primary care physician: . No PCP Attending physician on admission: Jona Schrader MD Consults: 10/19/16 14:08 Consult to Case Mgmt/Social Srvs [CONS] Routine Reason for Case Mgmt/Social Srvs: Rehab Psychiatric Management 10/19/16 16:07 Consult to Pastoral Services [CONS] Routine Comment: Pastoral Screen: Request Vision Therapist Visit Crying,Anxiety,Nervous,M Loneliness Impacting Heal Pastoral Screen Source of Request: Family Discharging clinician: Jona Schrader MD
--- NOTE | 2016-10-20 13:46 | Physician Query Form ---
CLICK EDIT DOCUMENT TO SELECT QUERY ANSWER --> OK --> SIGN Nhung Noonan RN Clinical Line Servicer W) [phone] (f) [phone] [email or web address] PROVIDERS: Make your selection(s) from the choices in EACH section by typing an "x" and enter comments in the comment section. Please use your independent medical judgment in providing your response. This request does not imply that any particular answer is desired or expected. CLINICAL INDICATORS: (Providers should not edit this section) Based on lab results of creatinine on admission of 0.90 and increased to 1.60 with a GFR of 31. Pt. treated with IV fluids of Normal Saline. Clarify which of the following most accurately represents the patient's renal status: ( X) Acute kidney injury (non-traumatic) ( ) Acute renal failure ( ) Acute renal failure with underlying Chronic Kidney Disease (CKD) - please provide stage below ( ) CKD - please provide stage below ( ) Other, please specify: ( ) Clinically unable to determine Chronic Kidney Disease Stages Source: National Kid[employer] Disease Foundation ( ) Stage I (eGFR > or = 90) ( ) Stage II (eGFR 60 - 89) ( ) Stage III (eGFR 30 - 59) ( ) Stage IV (eGFR 15 - 29) ( ) Stage V (eGFR < 15 or dialysis) COMMENTS: PLEASE ALSO DOCUMENT RESPONSE IN PROGRESS NOTES AND/OR DISCHARGE SUMMARY Use of terms such as suspected, likely, or probable (associated with a specific diagnosis that is being evaluated, monitored, or treated as if it exists) are acceptable and can be restated in the discharge summary if not ruled out. MTDD
[2016-10-20] MEDS: ENOXAPARIN 40 MG/0.4 ML SYRINGE SUBCUT SCH (14:01)
[2016-10-20 14:41] VITALS: BP 91/58
== END 2016-10-20 14:55 | DRG 917 ==
LOC: EDBD → EDUNIT# → N.ED 12:24 → N.EDINP 14:05 → N.CC 15:42
PROVIDERS: ADMIT Internal Medicine; ATTEND Internal Medicine

== ENCOUNTER 2017-06-02 15:54 | Observation (INO) ==
[2017-06-02] MEDS ORDERED: methylPREDNISolone SOD SUC 125 MG/2 ML VIAL IV STA (16:13)
[2017-06-02] MEDS ORDERED: ONDANSETRON 4 MG/2 ML VIAL IV STA (16:13)
[2017-06-02] MEDS ORDERED: SODIUM CHLORIDE 0.9% 1,000 ML IV STA (16:13)
[2017-06-02] MEDS ORDERED: METOCLOPRAMIDE 10 MG/2 ML VIAL IV STA (16:13)
[2017-06-02] MEDS ORDERED: ONDANSETRON 4 MG/2 ML VIAL ONE (16:18)
[2017-06-02] MEDS ORDERED: METOCLOPRAMIDE 10 MG/2 ML VIAL ONE (16:18)
[2017-06-02] MEDS ORDERED: methylPREDNISolone SOD SUC 125 MG/2 ML VIAL ONE (16:18)
[2017-06-02 16:32] LABS: Basophils # 0.1 10*3/uL (0.0-0.2); Eosinophils # 0.1 10*3/uL (0.0-0.87); Eosinophils % 1.2 % (0.00-10.9); Hematocrit 40.1 VOL% (35.7-47.0); Hemoglobin 13.3 GM/DL (12.0-16.0); Immature Granulocytes % 0.3 %; Immature Granulocytes Absolute 0.02 #; Lymphocytes # 1.8 10*3/uL (1.4-4.0); Lymphocytes % 24.2 % (21.3-54.2); Mean Corpuscular HGB Conc 33.2 GM/DL (32-36); Mean Corpuscular Hemoglobin 28 PG (27-34); Mean Corpuscular Volume 84.4 FL (87-102); Mean Platelet Volume 10.4 FL (9.6-12.0); Monocytes # 0.4 10*3/uL (0.11-0.8); Neutrophils % 68.3 % (38.7-73.9); Platelet Count 403 T/CUMM (130-400); Red Blood Count 4.75 MC/CUMM (3.8-5.5); White Blood Count 7.3 T/CUMM (4-12)
[2017-06-02 16:47] LABS: PT Patient Result 10.6 SECS
[2017-06-02 17:08] LABS: Albumin 4.3 G/DL (3.4-5.0); Bilirubin,Total 0.4 MG/DL (0.2-1.0); Calcium 9.1 MG/DL (8.5-10.1); Osmolality,Calculated 281.3 MOS/KG (273-304); Potassium 4.1 MMOL/L (3.5-5.1); Total Protein 8.2 G/DL (6.4-8.3)
[2017-06-02 18:12] LABS: Apearance,Urine CLEAR (Clear); Bilirubin,Urine Negative (Negative); Blood, Urine Negative (Negative); Glucose,Urine (UA) Negative (Negative); Hyaline Casts,Urine 1 /LPF (0-3); Ketones,Urine Negative (Negative); Mucus,Urine Occasional /LPF (Occasional); Nitrite,Urine Negative (Negative); Protein,Urine Negative; RBC,Urine 1 /HPF (0-4); Squamous Epithelial Cell,Urine Occasional /HPF (0-10); Urine Color Yellow (Yellow); Urine Urobilinogen < 2.0 EU/DL (0.2-1.0); WBC,Urine 1 /HPF (0-6)
[2017-06-02] MEDS ORDERED: ONDANSETRON 4 MG/2 ML VIAL IV PRN (18:12)
[2017-06-02] MEDS ORDERED: BISACODYL 5 MG TABLET PO PRN (18:12)
[2017-06-02] MEDS ORDERED: ACETAMINOPHEN 325 MG TABLET PO PRN (18:12)
[2017-06-02] MEDS ORDERED: guaiFENesin/DM ER 600-30 MG TABLET PO PRN (18:12)
[2017-06-02] MEDS ORDERED: diphenhydrAMINE CAP 25 MG CAPSULE PO PRN (18:12)
[2017-06-02 18:24] LABS: Barbiturates Screen,Urine Negative (Negative); Benzodiazepines Screen,Urine Positive (Negative); Cannabinoid Screen,Urine Negative (Negative); Opiate Screen,Urine Negative (Negative); Phencyclidine Screen,Urine Negative (Negative)
[2017-06-02] MEDS: SODIUM CHLORIDE 0.9% 1,000 ML IV SCH (22:04)
[2017-06-03 05:34] LABS: Basophils % 0.1 % (0.0-0.8); Hemoglobin 12.3 GM/DL (12.0-16.0); Immature Granulocytes % 0.5 %; Immature Granulocytes Absolute 0.04 #; Lymphocytes # 0.9 10*3/uL (1.4-4.0); Lymphocytes % 10.2 % (21.3-54.2); Mean Corpuscular HGB Conc 33.2 GM/DL (32-36); Mean Corpuscular Hemoglobin 28 PG (27-34); Mean Corpuscular Volume 85.5 FL (87-102); Monocytes # 0.1 10*3/uL (0.11-0.8); Monocytes % 0.9 % (1.7-12.7); Neutrophils # 7.8 10*3/uL (1.4-7.4); Neutrophils % 88.3 % (38.7-73.9); Platelet Count 381 T/CUMM (130-400); Red Blood Count 4.33 MC/CUMM (3.8-5.5); White Blood Count 8.8 T/CUMM (4-12)
[2017-06-03] MEDS: SODIUM CHLORIDE 0.9% 1,000 ML IV SCH ×2 (06:00→10:37)
[2017-06-03 06:06] LABS: Albumin 3.6 G/DL (3.4-5.0); Bilirubin,Total 0.9 MG/DL (0.2-1.0); Osmolality,Calculated 275.7 MOS/KG (273-304); Potassium 4.2 MMOL/L (3.5-5.1); Total Protein 6.9 G/DL (6.4-8.3)
[2017-06-03] MEDS ORDERED: ALPRAZolam 0.25 MG TABLET PO SCH (09:00)
[2017-06-03] MEDS ORDERED: PARoxetine 20 MG TABLET PO SCH (09:00)
[2017-06-03] MEDS ORDERED: PANTOPRAZOLE 40 MG TABLET PO SCH (09:00)
[2017-06-03 19:18] VITALS: BP 113/77
[2017-06-03] MEDS ORDERED: TRIHEXYPHENIDYL PO SCH (21:00)
[2017-06-03] MEDS ORDERED: CLOZAPINE 100 MG PO SCH (21:00)
== END 2017-06-03 17:50 ==
LOC: N.EDINP 15:54 → N.ED 15:54 → N.4E 18:47
PROVIDERS: ADMIT Pediatrics; ATTEND Pediatrics

== ENCOUNTER 2018-05-18 17:43 | Inpatient (IN) ==
[2018-05-18] MEDS: DEXTROSE 5% NACL 0.45% 1,000 ML IV SCH (17:55)
[2018-05-18 18:25] LABS: Basophils % 0.5 % (0.0-0.8); Eosinophils # 0.1 10*3/uL (0.0-0.87); Eosinophils % 0.8 % (0.00-10.9); Hematocrit 42.6 VOL% (35.7-47.0); Hemoglobin 13.9 GM/DL (12.0-16.0); Immature Granulocytes % 0.2 %; Immature Granulocytes Absolute 0.01 #; Lymphocytes # 2.2 10*3/uL (1.4-4.0); Mean Corpuscular HGB Conc 32.6 GM/DL (32-36); Mean Corpuscular Hemoglobin 29 PG (27-34); Mean Corpuscular Volume 87.7 FL (87-102); Mean Platelet Volume 11.4 FL (9.6-12.0); Monocytes # 0.5 10*3/uL (0.11-0.8); Monocytes % 8.8 % (1.7-12.7); Neutrophils # 3.2 10*3/uL (1.4-7.4); Neutrophils % 52.7 % (38.7-73.9); Platelet Count 323 T/CUMM (130-400); Red Blood Count 4.86 MC/CUMM (3.8-5.5); Red Cell Distribution Width 13.2 % (9.3-17.3)
[2018-05-18 18:30] LABS: INR 1.1; PT Patient Result 11.7 SECS
[2018-05-18 18:33] LABS: Acetaminophen 26.9 UG/ML (10-30)
[2018-05-18 19:08] LABS: Eosinophils 1 % (0-10); Lymphocytes 35 % (20-55); Segmented Neutrophils 54 % (50-85); Total Cells Counted 100
[2018-05-18 19:09] LABS: Giant Platelets Few; Platelet Estimate Normal
[2018-05-18 19:20] LABS: Alanine Aminotransferase 39 U/L (13-56); Albumin 3.9 G/DL (3.4-5.0); Alkaline Phosphatase 61 U/L (45-117); Aspartate Amino Transferase 29 U/L (0-37); Bilirubin,Total < 0.39 MG/DL (0.2-1.0); Blood Urea Nitrogen 7 MG/DL (7-18); Calcium 9.3 MG/DL (8.5-10.1); Free T4 (Free Thyroxine) 1.16 NG/DL (0.76-1.46); Glucose 81 MG/DL (74-106); Osmolality,Calculated 269.8 MOS/KG (273-304); Sodium 137 MMOL/L (136-145); Total Protein 8.1 G/DL (6.4-8.3); Troponin I < 0.015 NG/ML (0.00-0.045)
[2018-05-18 19:28] LABS: Apearance,Urine Slightly Hazy (Clear); Bacteria,Urine Occasional /HPF (Few); Bilirubin,Urine Negative (Negative); Blood, Urine Negative (Negative); Glucose,Urine (UA) Negative (Negative); Hyaline Casts,Urine 7 /LPF (0-3); Ketones,Urine 5 mg/dL (Negative); Mucus,Urine Occasional /LPF (Occasional); Nitrite,Urine Negative (Negative); Protein,Urine 100 MG/DL; RBC,Urine 2 /HPF (0-4); Renal Epithelial Cells,Urine Occasional /HPF (<1); Squamous Epithelial Cell,Urine Occasional /HPF (0-10); Urine Color Straw (Yellow); Urine Specific Gravity 1.015 (1.001-1.035); Urine Urobilinogen < 2.0 EU/DL (0.2-1.0); WBC,Urine 5 /HPF (0-6)
[2018-05-18 19:39] LABS: Barbiturates Screen,Urine Negative (Negative); Benzodiazepines Screen,Urine Positive (Negative); Cannabinoid Screen,Urine Negative (Negative); Opiate Screen,Urine Negative (Negative); Phencyclidine Screen,Urine Negative (Negative)
[2018-05-18 20:18] LABS: Lactic Acid 3.4 MMOL/L (0.4-2.0)
[2018-05-18 22:39] LABS: Alanine Aminotransferase 36 U/L (13-56); Albumin 3.6 G/DL (3.4-5.0); Alkaline Phosphatase 55 U/L (45-117); Aspartate Amino Transferase 25 U/L (0-37); Bilirubin,Total < 0.39 MG/DL (0.2-1.0); Blood Urea Nitrogen 9 MG/DL (7-18); Calcium 8.7 MG/DL (8.5-10.1); Glucose 100 MG/DL (74-106); Potassium 3.7 MMOL/L (3.5-5.1); Sodium 136 MMOL/L (136-145); Total Protein 7.5 G/DL (6.4-8.3)
[2018-05-18] MEDS ORDERED: SODIUM CHLORIDE 0.9% 500 ML IV ONE (22:41)
[2018-05-18] MEDS ORDERED: ONDANSETRON 4 MG/2 ML VIAL IV PRN (22:42)
[2018-05-18] MEDS ORDERED: ALBUTEROL 2.5 MG/3 ML NEB RESP TX PRN (22:42)
[2018-05-19 00:59] LABS: Lactic Acid 3.5 MMOL/L (0.4-2.0)
[2018-05-19] MEDS ORDERED: SODIUM CHLORIDE 0.9% 500 ML IV ONE (01:16)
[2018-05-19 02:30] LABS: Basophils % 0.5 % (0.0-0.8); Eosinophils % 0.5 % (0.00-10.9); Hematocrit 35.3 VOL% (35.7-47.0); Hemoglobin 11.6 GM/DL (12.0-16.0); Immature Granulocytes % 0.2 %; Immature Granulocytes Absolute 0.01 #; Lymphocytes # 2.4 10*3/uL (1.4-4.0); Lymphocytes % 35.9 % (21.3-54.2); Mean Corpuscular HGB Conc 32.9 GM/DL (32-36); Mean Corpuscular Hemoglobin 29 PG (27-34); Mean Corpuscular Volume 87.8 FL (87-102); Mean Platelet Volume 11.1 FL (9.6-12.0); Monocytes # 0.9 10*3/uL (0.11-0.8); Monocytes % 13.4 % (1.7-12.7); Neutrophils # 3.3 10*3/uL (1.4-7.4); Neutrophils % 49.5 % (38.7-73.9); Platelet Count 273 T/CUMM (130-400); Red Blood Count 4.02 MC/CUMM (3.8-5.5); Red Cell Distribution Width 13.2 % (9.3-17.3); White Blood Count 6.7 T/CUMM (4-12)
[2018-05-19 02:40] LABS: INR 1.2; PT Patient Result 12.5 SECS
[2018-05-19 02:48] LABS: Alanine Aminotransferase 31 U/L (13-56); Alkaline Phosphatase 46 U/L (45-117); Aspartate Amino Transferase 22 U/L (0-37); Bilirubin,Total < 0.39 MG/DL (0.2-1.0); Blood Urea Nitrogen 8 MG/DL (7-18); Calcium 7.8 MG/DL (8.5-10.1); Glucose 95 MG/DL (74-106); Osmolality,Calculated 274.5 MOS/KG (273-304); Potassium 3.3 MMOL/L (3.5-5.1); Sodium 139 MMOL/L (136-145); Total Protein 6.3 G/DL (6.4-8.3)
[2018-05-19] MEDS: DEXTROSE 5% NACL 0.45% 1,000 ML IV SCH ×2 (04:00→11:44)
[2018-05-19] MEDS: POTASSIUM CHLORIDE 20 MEQ TABLET PO SCH ×3 (08:54→16:30)
[2018-05-19] MEDS: ENOXAPARIN 40 MG/0.4 ML SYRINGE SUBCUT SCH (08:55)
[2018-05-19] MEDS: PARoxetine 20 MG TABLET PO SCH (08:55)
[2018-05-19] MEDS: SODIUM CHLORIDE 0.9% 1,000 ML IV SCH ×2 (18:05→22:11)
[2018-05-19] MEDS: ACETAMINOPHEN 325 MG TABLET PO PRN (22:22)
[2018-05-20 04:19] LABS: Lactic Acid 1.4 MMOL/L (0.4-2.0)
[2018-05-20 04:27] LABS: Blood Urea Nitrogen 8 MG/DL (7-18); Calcium 8.9 MG/DL (8.5-10.1); Glucose 93 MG/DL (74-106); Osmolality,Calculated 278.3 MOS/KG (273-304); Potassium 4.2 MMOL/L (3.5-5.1); Sodium 141 MMOL/L (136-145)
[2018-05-20] MEDS ORDERED: SODIUM CHLORIDE 0.9% 1,000 ML IV ONE (06:25)
[2018-05-20] MEDS: ACETAMINOPHEN 325 MG TABLET PO PRN ×2 (08:03→15:53)
[2018-05-20] MEDS: ENOXAPARIN 40 MG/0.4 ML SYRINGE SUBCUT SCH (08:03)
[2018-05-20] MEDS: PARoxetine 20 MG TABLET PO SCH (08:04)
[2018-05-20] MEDS ORDERED: ALPRAZolam 0.5 MG TABLET PO PRN (09:08)
[2018-05-20] MEDS ORDERED: DIVALPROEX 250 MG TABLET PO SCH (09:30)
[2018-05-20 16:32] VITALS: BP 110/68
== END 2018-05-20 16:52 | DRG 918 ==
LOC: EDBD → EDUNIT# → N.ED 17:43 → N.EDINP 21:12 → N.CC 21:22
PROVIDERS: ADMIT Hospitalist; ATTEND Hospitalist